=== PATIENT | female | born 1970 | race American Indian/Alaskan Native ===

== ENCOUNTER 2017-02-11 21:13 | Emergency (ER) | payer SELFPAY ==
[2017-02-11] MEDS ORDERED: ZESTRIL PO ONE (22:24)
[2017-02-11] MEDS ORDERED: ZESTRIL ONE (22:27)
[2017-02-12] MEDS ORDERED: CATAPRES PO ONE (00:47)
[2017-02-12] MEDS ORDERED: CATAPRES ONE (00:49)
[2017-02-12 02:02] VITALS: BP 193/95
--- NOTE | 2017-02-12 02:21 | Emergency Department Report ---
- General Chief complaint: Extremity Injury, Lower Stated complaint: PAIN ON RIGHT LEG Time Seen by Provider: 02/12/17 01:39 Source: patient, family Mode of arrival: Ambulatory Limitations: No Limitations - History of Present Illness Initial comments: 47-year-old female past medical history hypertension noncompliant with medicines presents with complaint of 3 days of abscess to her right lateral knee. Denies fever or chills. States her skin is very uncomfortable. Denies any chest pain shortness of breath dizziness headache nausea vomiting abdominal pain palpitations shortness of breath. States she is concerned that a bug may have bitten her leg. patient states that she takes lisinopril for her blood pressure but recently ran out of her prescription MD complaint: abscess/boil Onset/Timin -: days(s) Location: RLE Severity: moderate Severity scale (0 -10): 5 Quality: aching Consistency: constant Context: none - Related Data Previous Rx's Medication Instructions Recorded Last Taken Type Acetaminophen [Tylenol] 500 mg PO Q6HR PRN #20 tablet 02/12/17 Unknown Rx Lisinopril [Zestril TAB] 10 mg PO QDAY #30 tablet 02/12/17 Unknown Rx Sulfamethoxazole/Trimethoprim 1 each PO BID #14 tablet 02/12/17 Unknown Rx [Bactrim DS TAB] Allergies Allergy/AdvReac Type Severity Reaction Status Date / Time No Known Allergies Allergy Verified 02/11/17 22:23 Abscess Boil [facility] Chief Complaint: Extremity Injury, Lower Stated Complaint: PAIN ON RIGHT LEG Time Seen by Provider: 02/12/17 01:39 Home Medications: Previous Rx's Medication Instructions Recorded Last Taken Type Acetaminophen [Tylenol] 500 mg PO Q6HR PRN #20 tablet 02/12/17 Unknown Rx Lisinopril [Zestril TAB] 10 mg PO QDAY #30 tablet 02/12/17 Unknown Rx Sulfamethoxazole/Trimethoprim 1 each PO BID #14 tablet 02/12/17 Unknown Rx [Bactrim DS TAB] Allergies/Adverse Reactions: Allergies Allergy/AdvReac Type Severity Reaction Status Date / Time No Known Allergies Allergy Verified 02/11/17 22:23 ED Review of Systems ROS: Stated complaint: PAIN ON RIGHT LEG Other details as noted in HPI Constitutional: denies: chills, fever Eyes: denies: eye pain, eye discharge, vision change ENT: denies: ear pain, throat pain Respiratory: denies: cough, shortness of breath, wheezing Cardiovascular: denies: chest pain, palpitations Endocrine: no symptoms reported Gastrointestinal: denies: abdominal pain, nausea, diarrhea Genitourinary: denies: urgency, dysuria, discharge Musculoskeletal: denies: back pain, joint swelling, arthralgia Skin: as per HPI. denies: rash, lesions Neurological: denies: headache, weakness, paresthesias Psychiatric: denies: anxiety, depression Hematological/Lymphatic: denies: easy bleeding, easy bruising ED Past Medical Hx - Past Medical History Previous Medical History?: Yes Hx Hypertension: Yes - Surgical History Past Surgical History?: Yes Additional Surgical History: c section x 3 cysts removed - Social History Smoking Status: Never Smoker Substance Use Type: Prescribed - Medications Home Medications: Home Medications Medication Instructions Recorded Confirmed Last Taken Type Acetaminophen [Tylenol] 500 mg PO Q6HR PRN #20 tablet 02/12/17 Unknown Rx Lisinopril [Zestril TAB] 10 mg PO QDAY #30 tablet 02/12/17 Unknown Rx Sulfamethoxazole/Trimethoprim 1 each PO BID #14 tablet 02/12/17 Unknown Rx [Bactrim DS TAB] ED Physical Exam - General Limitations: No Limitations General appearance: alert, in no apparent distress - Head Head exam: Present: atraumatic, normocephalic - Eye Eye exam: Present: normal appearance, PERRL, EOMI - ENT ENT exam: Present: mucous membranes moist - Neck Neck exam: Present: normal inspection, full ROM - Respiratory Respiratory exam: Present: normal lung sounds bilaterally. Absent: respiratory distress - Cardiovascular Cardiovascular Exam: Present: regular rate, normal rhythm. Absent: systolic murmur, diastolic murmur, rubs, gallop - GI/Abdominal GI/Abdominal exam: Present: soft, normal bowel sounds - Extremities Exam Extremities exam: Present: normal inspection - Expanded Lower Extremity Exam Right Knee exam: Present: full ROM (E flexion and extension intact), tenderness ( tenderness below right patellar region at site of small 3 cm abscess), full knee extension Lower Leg exam: Present: normal inspection, full ROM Ankle exam: Present: normal inspection, full ROM Foot/Toe exam: Present: normal inspection, full ROM Neuro vascular tendon exam: Present: no vascular compromise (distal capillary refill dorsalis pedis and posterior tibial pulses intact) Gait: Positive: observed and normal 1 - 2-3 cm abscess here - Back Exam Back exam: Present: normal inspection - Neurological Exam Neurological exam: Present: alert, oriented X3, CN II-XII intact, normal gait - Psychiatric Psychiatric exam: Present: normal affect, normal mood - Skin Skin exam: Present: warm, dry, intact, normal color. Absent: rash ED Course Vital Signs 02/11/17 02/11/17 02/12/17 22:17 22:26 00:42 Temperature 98.6 F 98.7 F Pulse Rate 74 68 Respiratory 18 17 Rate Blood Pressure 208/97 208/97 Blood Pressure 199/100 [Right] O2 Sat by Pulse 97 99 Oximetry 02/12/17 02/12/17 00:48 02:01 Temperature 98 F Pulse Rate 81 Respiratory 16 Rate Blood Pressure 199/100 Blood Pressure 193/95 [Right] O2 Sat by Pulse 100 Oximetry - I & D Right Lateral Knee Type of Procedure: Simple Site: right Blade Size: 11 I & D Procedure: betadine prep, sterile dressing applied Progress: Area infiltrated with lidocaine 2% without epinephrine. Good local anesthesia achieved Small 1 cm incision made along Lani's lines. Small amount of drainage. Minimal bleeding. Procedure tolerated well. Covered with Band-Aid. - Laceration /Wound Repair Right Lower Lateral Knee Wound Location: lower extremity (below right knee/lateral upper tibial region) Wound Length (cm): 3 ED Medical Decision Making - Medical Decision Making A/P: Right lower extremity Abscess 1-locally incised and drained, procedure tolerated well, minimal purulent drainage 2-Bactrim twice a day 7 days 3-Tylenol when necessary 4-refill on hypertension medicines. Patient does not currently have chest pain palpitations shortness of breath dizziness headache and nausea vomiting abdominal pain or symptomatic hypertension. Patient advised to follow-up with primary care which I referred her to Critical care attestation.: If time is entered above; I have spent that time in minutes in the direct care of this critically ill patient, excluding procedure time. ED Disposition Clinical Impression: Abscess of right lower extremity, Asymptomatic hypertension Disposition: - TO HOME OR SELFCARE Is pt being admited?: No Does the pt Need Aspirin: No Condition: Stable Instructions: Hypertension (ED), Abscess Incision and Drainage (ED), Abscess ( ED) Prescriptions: Acetaminophen [Tylenol] 500 mg PO Q6HR PRN #20 tablet PRN Reason: Pain Lisinopril [Zestril TAB] 10 mg PO QDAY #30 tablet Sulfamethoxazole/Trimethoprim [Bactrim DS TAB] 1 each PO BID #14 tablet Referrals: [facility] [Provider Group] - 3-5 Days [facility] [Outside] - 3-5 Days IVETTE PADILLA MD [Staff Physician] - 3-5 Days Forms: Work/School Release Form(ED), Accompanied Note Time of Disposition: 02:36
== END 2017-02-12 02:50 | disposition home or self-care (01) ==
LOC: ED 21:13
DX: L02.415 Cutaneous abscess of right lower limb (principal); I10 Essential (primary) hypertension
CPT/HCPCS: 99282

== ENCOUNTER 2018-07-16 23:13 | Inpatient (IN) | payer MEDICAID, OTHER ==
[2018-07-16] MEDS ORDERED: ASPIRIN PO ONE (23:26)
[2018-07-16 23:58] LABS: Basophils % (Auto) 0.5 % (0.0-1.8); Eosinophils # (Auto) 0.2 K/mm3 (0.0-0.4); Eosinophils % (Auto) 1.9 % (0.0-4.3); Hemoglobin 11.7 gm/dl (10.1-14.3); Lymphocytes # (Auto) 3.2 K/mm3 (1.2-5.4); Lymphocytes % (Auto) 36.5 % (13.4-35.0); Mean Corpuscular HGB Conc 33 % (30-34); Mean Corpuscular Volume 84 fl (79-97); Monocytes # (Auto) 0.8 K/mm3 (0.0-0.8); Monocytes % (Auto) 9.6 % (0.0-7.3); Platelet Count 205 K/mm3 (140-440); Red Blood Count 4.27 M/mm3 (3.65-5.03)
[2018-07-17 00:09] LABS: BUN/Creatinine Ratio 10; Blood Urea Nitrogen 8 mg/dL (7-17); Calcium 8.5 mg/dL (8.4-10.2); Hemolysis Index 4
[2018-07-17] MEDS ORDERED: CATAPRES PO ONE (00:26)
[2018-07-17] MEDS ORDERED: CATAPRES ONE (00:27)
[2018-07-17] MEDS ORDERED: MORPHINE IV ONE (02:18)
[2018-07-17] MEDS ORDERED: ASPIRIN PO ONE (02:18)
[2018-07-17] MEDS ORDERED: ZOFRAN IV ONE (02:18)
[2018-07-17] MEDS ORDERED: NORMODYNE IV ONE (02:19)
[2018-07-17 03:25] LABS: INR 1.07 (0.87-1.13)
[2018-07-17 03:26] LABS: Partial Thromboplastin Time 30.5 Sec. (24.2-36.6)
--- NOTE | 2018-07-17 03:26 | XRay Report ---
FINAL REPORT EXAM: XR CHEST 1V AP HISTORY: chest pain COMPARISON: None available. FINDINGS: Frontal view(s) of the chest obtained. Heart borderline enlarged.. No gross consolidation or effusion . No pneumothorax. IMPRESSION: Heart borderline enlarged. Lungs are grossly clear.
--- NOTE | 2018-07-17 05:25 | Emergency Department Report ---
ED Chest Pain HPI - General Chief Complaint: Chest Pain Stated Complaint: CHEST PAIN Time Seen by Provider: 07/17/18 01:39 Source: patient Mode of arrival: Ambulatory Limitations: No Limitations - History of Present Illness Initial Comments: 48 yo female presents to ED with chest pain. States pain began 3 hours prior to arrival, is left-sided, sharp in nature, radiating into left arm. Her platelets nausea. Also reports pleuritic component. He has history of hypertension, is currently very hypertensive. Reports taking lisinopril at home. Patient denies ever having stress testing. No PCP currently. MD Complaint: chest pain -: This evening Onset: during rest Pain Location: left chest Pain Radiation: LUE, back Severity: moderate Severity scale (0 -10): 8 Quality: sharp Consistency: intermittent Improves With: leaning foward re: nausea. denies: dyspnea Other Symptoms: denies: cough, fever, leg swelling - Related Data Previous Rx's Medication Instructions Recorded Last Taken Type Acetaminophen [Tylenol] 500 mg PO Q6HR PRN #20 tablet 02/12/17 Unknown Rx Lisinopril [Zestril TAB] 10 mg PO QDAY #30 tablet 02/12/17 Unknown Rx Sulfamethoxazole/Trimethoprim 1 each PO BID #14 tablet 02/12/17 Unknown Rx [Bactrim DS TAB] Allergies Allergy/AdvReac Type Severity Reaction Status Date / Time No Known Allergies Allergy Verified 02/11/17 22:23 Heart Score - HEART Score History: Moderately suspicious EKG: Non-specific Age: 45-65 Risk factors: 1-2 risk factors Troponin: < normal limit HEART Score: 4 ED Review of Systems ROS: Stated complaint: CHEST PAIN Other details as noted in HPI Comment: All other systems reviewed and negative Constitutional: denies: chills, fever Respiratory: denies: shortness of breath Cardiovascular: chest pain Gastrointestinal: nausea ED Past Medical Hx - Past Medical History Previous Medical History?: Yes Hx Hypertension: Yes - Surgical History Past Surgical History?: Yes Additional Surgical History: c section x 3 cysts removed - Social History Smoking Status: Never Smoker - Medications Home Medications: Home Medications Medication Instructions Recorded Confirmed Last Taken Type Acetaminophen [Tylenol] 500 mg PO Q6HR PRN #20 tablet 02/12/17 Unknown Rx Lisinopril [Zestril TAB] 10 mg PO QDAY #30 tablet 02/12/17 Unknown Rx Sulfamethoxazole/Trimethoprim 1 each PO BID #14 tablet 02/12/17 Unknown Rx [Bactrim DS TAB] ED Physical Exam - General Limitations: No Limitations General appearance: alert, in no apparent distress - Head Head exam: Present: atraumatic, normocephalic - Eye Eye exam: Present: normal appearance - ENT ENT exam: Present: mucous membranes moist - Neck Neck exam: Present: normal inspection - Respiratory Respiratory exam: Present: normal lung sounds bilaterally. Absent: respiratory distress - Cardiovascular Cardiovascular Exam: Present: regular rate, normal rhythm - GI/Abdominal GI/Abdominal exam: Present: soft. Absent: distended, tenderness - Extremities Exam Extremities exam: Absent: pedal edema, calf tenderness - Neurological Exam Neurological exam: Present: alert, oriented X3 - Psychiatric Psychiatric exam: Present: normal affect, normal mood - Skin Skin exam: Present: warm, dry, intact, normal color. Absent: rash ED Course Vital Signs 07/16/18 07/17/18 07/17/18 23:18 00:27 01:45 Temperature 98.5 F Pulse Rate 82 77 Respiratory 20 14 Rate Blood Pressure 237/113 222/115 O2 Sat by Pulse 99 99 Oximetry 07/17/18 07/17/18 07/17/18 02:22 02:30 02:46 Temperature Pulse Rate 66 72 70 Respiratory 14 17 14 Rate Blood Pressure 193/91 199/78 O2 Sat by Pulse 99 Oximetry 07/17/18 02:57 Temperature Pulse Rate 72 Respiratory Rate Blood Pressure 199/78 O2 Sat by Pulse Oximetry ED Medical Decision Making - Lab Data Result diagrams: 07/16/18 23:29 07/16/18 23:29 - EKG Data -: EKG Interpreted by Wy EKG shows normal: sinus rhythm Rate: normal - EKG Data Interpretation: LVH, other (lateral T wave inversions) - Radiology Data Radiology results: report reviewed, image reviewed - Medical Decision Making 48-year-old female with chest pain. Initially extremely hypertensive. On a daily labetalol, systolic BP currently in the 140s. She is currently chest pain-free. Troponin is negative, EKG shows lateral T-wave inversions. D-dimer also negative, chest x-ray normal. Will admit to hospitalist for further evaluation. - Differential Diagnosis ACS, PE, pneumonia, pulm edema Critical Care Time: Yes Critical care time in (mins) excluding proc time.: 30 Critical care attestation.: If time is entered above; I have spent that time in minutes in the direct care of this critically ill patient, excluding procedure time. Critical Care Time: 30 minutes ED Disposition Clinical Impression: Chest pain, Hypertensive urgency Disposition: OP ADMIT IP TO THIS HOSP Is pt being admited?: Yes Condition: Stable Instructions: Chest Pain (ED) Referrals: CECIL LARSEN [Primary Care Provider] - 3-5 Days Time of Disposition: 05:28
[2018-07-17] MEDS ORDERED: APRESOLINE IV PRN ×2 (06:26→06:31)
[2018-07-17] MEDS ORDERED: APRESOLINE ONE (06:33)
[2018-07-17] MEDS ORDERED: DILAUDID IV PRN (09:37)
[2018-07-17] MEDS ORDERED: PERCOCET 5/325 PO PRN (09:37)
[2018-07-17] MEDS ORDERED: SODIUM CHLORIDE FLUSH SYRINGE 10 ML IV PRN (09:37)
[2018-07-17] MEDS ORDERED: TYLENOL PO PRN ×2 (09:37→09:40)
[2018-07-17] MEDS ORDERED: ZOFRAN IV PRN (09:37)
--- NOTE | 2018-07-17 09:37 | History and Physical Report ---
History of Present Illness Date of examination: 07/17/18 Medications and Allergies Allergies Allergy/AdvReac Type Severity Reaction Status Date / Time No Known Allergies Allergy Verified 02/11/17 22:23 Home Medications Medication Instructions Recorded Confirmed Last Taken Type Acetaminophen [Tylenol] 500 mg PO Q6HR PRN #20 tablet 02/12/17 Unknown Rx Lisinopril [Zestril TAB] 10 mg PO QDAY #30 tablet 02/12/17 Unknown Rx Sulfamethoxazole/Trimethoprim 1 each PO BID #14 tablet 02/12/17 Unknown Rx [Bactrim DS TAB] Active Meds: Active Medications Hydralazine HCl (Apresoline) 5 mg IV Q6H PRN PRN Reason: Hypertension Exam - Constitutional Vitals: Temp Pulse Resp BP Pulse Ox 98.5 F 65 19 155/83 100 07/16/18 23:18 07/17/18 06:54 07/17/18 06:54 07/17/18 06:54 07/17/18 06:54 Results - Labs CBC & Chem 7: 07/16/18 23:29 07/16/18 23:29 Labs: Laboratory Last Values WBC 8.7 K/mm3 (4.5-11.0) 07/16/18 23:29 RBC 4.27 M/mm3 (3.65-5.03) 07/16/18 23:29 Hgb 11.7 gm/dl (10.1-14.3) 07/16/18 23:29 Hct 36.0 % (30.3-42.9) 07/16/18 23:29 MCV 84 fl (79-97) 07/16/18 23:29 MCH 27 pg (28-32) L 07/16/18 23:29 MCHC 33 % (30-34) 07/16/18 23:29 RDW 14.0 % (13.2-15.2) 07/16/18 23:29 Plt Count 205 K/mm3 (140-440) 07/16/18 23:29 Lymph % (Auto) 36.5 % (13.4-35.0) H 07/16/18 23:29 [place] % (Auto) 9.6 % (0.0-7.3) H 07/16/18 23:29 Eos % (Auto) 1.9 % (0.0-4.3) 07/16/18 23:29 Baso % (Auto) 0.5 % (0.0-1.8) 07/16/18 23:29 Lymph # 3.2 K/mm3 (1.2-5.4) 07/16/18 23:29 [place] # 0.8 K/mm3 (0.0-0.8) 07/16/18 23:29 Eos # 0.2 K/mm3 (0.0-0.4) 07/16/18 23:29 Baso # 0.0 K/mm3 (0.0-0.1) 07/16/18 23:29 Seg Neutrophils % 51.5 % (40.0-70.0) 07/16/18 23: Seg Neutrophils # 4.5 K/mm3 (1.8-7.7) 07/16/18 23:29 PT 14.3 Sec. (12.2-14.9) 07/17/18 02:53 INR 1.07 (0.87-1.13) 07/17/18 02:53 APTT 30.5 Sec. (24.2-36.6) 07/17/18 02:53 D-Dimer < 135 ng/mlDDU (0-234) 07/17/18 02:53 Sodium 138 mmol/L (137-145) 07/16/18 23:29 Potassium 3.9 mmol/L (3.6-5.0) 07/16/18 23:29 Chloride 98.9 mmol/L (98-107) 07/16/18 23:29 Carbon Dioxide 28 mmol/L (22-30) 07/16/18 23:29 Anion Gap 15 mmol/L 07/16/18 23:29 BUN 8 mg/dL (7-17) 07/16/18 23:29 Creatinine 0.8 mg/dL (0.7-1.2) 07/16/18 23:29 Estimated GFR > 60 ml/min 07/16/18 23:29 BUN/Creatinine Ratio 10 % 07/16/18 23:29 Glucose 280 mg/dL (65-100) H 07/16/18 23:29 Calcium 8.5 mg/dL (8.4-10.2) 07/16/18 23:29 Troponin T < 0.010 ng/mL (0.00-0.029) 07/17/18 06:10 HCG, Qual Negative (Negative) 07/16/18 23:29
[2018-07-17] MEDS ORDERED: ZESTRIL PO SCH (10:00)
[2018-07-17] MEDS ORDERED: LEXISCAN IV ONE (12:30)
[2018-07-17 14:39] VITALS: BP 171/78
[2018-07-17] MEDS ORDERED: D5/0.45NS 1,000 ML IV SCH (15:00)
[2018-07-17] MEDS ORDERED: HumaLOG SUB-Q ONE (15:00)
--- NOTE | 2018-07-17 15:28 | Event Note ---
Date: 07/17/18 See history and physical in the reports Chest pain rule out [place] New-onset diabetes
--- NOTE | 2018-07-17 15:33 | Treadmill Report ---
NUCLEAR PERFUSION SCAN REFERRING PHYSICIAN: Hospitalist service. PROTOCOL: The patient was brought to the stress lab in a postabsorptive state, given 10 mCi of technetium 99m at rest. The patient underwent rest imaging. The patient will have a Lexiscan stress test. At peak stress, the patient was given 26 mCi of technetium 99m. Shortly thereafter, the patient underwent stress imaging. Raw imaging reveals mild GI artifact, no significant motion artifact. SPECT imaging examined carefully in the horizontal long axis, vertical long axis, short axis views. There is normal homogenous uptake of radioisotope in all reported segments. No evidence of significant fixed or reversible perfusion defects suggestive of prior infarction or ischemia. Gated wall motion reveals normal systolic thickening, calculated ejection fraction of 58%, no TID. CONCLUSIONS: 1. Normal myocardial perfusion scan without evidence of significant degree of ischemia or prior infarction. 2. Normal left ventricular systolic performance without evidence of transient ischemic dilatation or stress-induced segmental wall motion abnormalities. 3. Lexiscan portion of stress test is reported separately. JOB# [id number] ABDIRIZAK/AMOR
--- NOTE | 2018-07-17 15:36 | Discharge Summary ---
Providers - Providers Date of Admission: 07/17/18 06:31 Date of discharge: 07/17/18 Attending physician: STEVE MCARTHUR Primary care physician: CECIL LARSEN Hospitalization Condition: Stable Procedures: MPI negative Hospital course: Patient was admitted for chest pain rule out [place] and uncontrolled hypertension. The patient's blood pressure medications were adjusted were also negative milligrams a 160 mg was added. Patient is assessed as well in April was admitted to the hospital but just stress test was negative. EKG was normal. Th e patient being discharged on increased antihypertensives in the form of 160 BY MOUTH DAILY CONTINUING TO CONTINUE ASPIRIN. DISCHARGE DIAGNOSES HYPERTENSIVE EMERGENCY [place] DIABETES AND CHEST PAIN RULE OUT [place] PROTOCOL. Disposition: TO HOME OR SELFCARE Core Measure Documentation - Palliative Care Palliative Care/ Comfort Measures: Not Applicable - Core Measures Any of the following diagnoses?: none Exam - Constitutional Vitals: Temp Pulse Resp BP Pulse Ox 98.5 F 65 19 171/78 98 07/16/18 23:18 07/17/18 14:38 07/17/18 14:21 07/17/18 14:38 07/17/18 14:21 General appearance: Present: no acute distress, well-nourished - EENT Eyes: Present: PERRL ENT: hearing intact, clear oral mucosa - Neck Neck: Present: supple, normal ROM - Respiratory Respiratory effort: normal Respiratory: bilateral: CTA - Cardiovascular Heart Sounds: Present: S1 & S2. Absent: rub, click - Extremities Extremities: pulses symmetrical, No edema Peripheral Pulses: within normal limits - Abdominal General gastrointestinal: Present: soft, non-tender, non-distended, normal bowel sounds Female genitourinary: Present: normal - Integumentary Integumentary: Present: clear, warm, dry - Musculoskeletal Musculoskeletal: gait normal, strength equal bilaterally - Psychiatric Psychiatric: appropriate mood/affect, intact judgment & insight - Neurologic Neurologic: CNII-XII intact, moves all extremities Plan Diet: diabetic Follow up with: CECIL LARSEN [Primary Care Provider] - 3-5 Days
--- NOTE | 2018-07-17 16:00 | History and Physical Report ---
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 No vomiting. No diaphoresis, no shortness of breath. The patient has history of hypertension. The patient is taking her medications. No radiation of the chest pain. Chest pain is precordial. Also, pain is about 5-6 on a scale of 1-10. No exacerbating or relieving factors. No trauma. No contusion injury. PAST MEDICAL HISTORY: Significant for hypertension and newly onset diabetes mellitus diagnosed today. PAST SURGICAL HISTORY: x 3 and cyst removed. SOCIAL HISTORY: Does not smoke. FAMILY HISTORY: Hypertension. CURRENT MEDICATIONS: Lisinopril 10 mg once a day. REVIEW OF SYSTEMS: Significant for left-sided chest pain. Otherwise, review of systems negative. PHYSICAL EXAMINATION: GENERAL: Middle-aged female, cooperative during examination. VITAL SIGNS: Blood pressure is 187/100 that has come down to 171/78, temperature is 98, pulse is 70 and respirations are 16. HEENT: Unremarkable. Pupils are equal and reactive. NECK: Supple, no lymphadenopathy, no thyromegaly. LUNGS: Clear to auscultation and percussion. Good air entry. CARDIOVASCULAR: S1, S2 heard. No gallop, no murmur, no rub. Apical impulse in left fifth intercostal space and midclavicular line. ABDOMEN: Soft and benign. No hepatosplenomegaly. No guarding, no rigidity. Hernial orifices are normal. EXTREMITIES: Good pedal pulses. No pedal edema. CENTRAL NERVOUS SYSTEM: Alert and oriented x 4, nonfocal exam. LABORATORY DATA: Chest x-ray is normal. No acute findings. Heart is borderline enlarged. The EKG shows normal sinus rhythm, heart rate of 59 per minute. Borderline sinus bradycardia. LVH present. T-wave inversions in V5 and V6. Troponins are negative. White count is 8700, H and H is 11.7 and 36.0. Sodium is 138, potassium is 3.9, chloride is 99, bicarbonate is 28, BUN and creatinine of 8 and 0.8, glucose is 280. A1c is 8.1. Troponin is less than 0.010. Chest x-ray, no acute findings. ASSESSMENT AND PLAN: 1. Chest pain, rule out myocardial infarction, chest pain protocol. 2. New onset diabetes. The patient initiated on metformin and glimepiride 2 mg once a day. The patient informed about diabetes and educated her about diabetes. 3. Hypertensive emergency. The patient's blood pressure medications adjusted. Added valsartan 80 mg q. 12. 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 JOB# [id number] VSM/NTS
[2018-07-17] MEDS ORDERED: SODIUM CHLORIDE FLUSH SYRINGE 10 ML IV SCH (22:00)
[2018-07-18] MEDS ORDERED: ASPIRIN 81 MG PO SCH (10:00)
[2018-07-18] MEDS ORDERED: HALFPRIN EC PO SCH (10:00)
== END 2018-07-17 17:17 | disposition home or self-care (01) | DRG 305 ==
LOC: ED 23:13 → 4A 07-17 06:31
PROVIDERS: ADMIT Internal Medicine; ATTEND Internal Medicine
DX: I16.1 Hypertensive emergency (principal); R07.9 Chest pain, unspecified; I16.0 Hypertensive urgency; I10 Essential (primary) hypertension; E11.9 Type 2 diabetes mellitus without complications
CPT/HCPCS: 36415; 71045; 78452; 80048; 83036; 84484; 84703; 85025; 85379; 85610; 85730; 93005; 93010; 93017; G0378; A9502; J0360; J1170; J2270; J2405; J2785

== ENCOUNTER 2018-07-31 10:33 | Emergency (ER) | payer OTHER ==
[2018-07-31 12:01] LABS: Bilirubin,Urine NEG (Negative); Blood,Urine LG (Negative); Color,Urine Red (Yellow); Urobilinogen,Urine < 2.0 mg/dL (<2.0)
[2018-07-31 12:02] LABS: RBC,Urine > 182.0 /HPF (0.0-6.0); WBC,Urine > 182.0 /HPF (0.0-6.0)
[2018-07-31 12:03] LABS: HCG Qualitative,Urine Negative (Negative)
[2018-07-31] MEDS ORDERED: ULTRAM PO ONE (13:45)
--- NOTE | 2018-07-31 15:55 | Emergency Department Report ---
ED Female HPI - General Chief complaint: Vaginal Bleeding Stated complaint: ABD PAIN/VAGINAL BLEEDING Time Seen by Provider: 07/31/18 13:27 Source: patient Mode of arrival: Ambulatory Limitations: No Limitations - History of Present Illness Initial comments: Patient is a 48-year-old female presents to the complaining of heavy vaginal bleeding that started yesterday. Patient states that her menstrual cycle usually last about 2-3 days. States that she had her normal cycle in June and it was not as heavy. Patient states that yesterday since bleeding so these are pretty heavy with some pelvic cramping. She denies dysuria, hematuria, nausea vomiting MD Complaint: vaginal bleeding - Related Data Previous Rx's Medication Instructions Recorded Last Taken Type Aspirin [Lo-Dose Aspirin EC] 81 mg PO DAILY #100 tablet. 07/17/18 Unknown Rx Glimepiride [Amaryl] 1 mg PO QAM #90 tablet 07/17/18 Unknown Rx Lisinopril [Zestril TAB] 20 mg PO QDAY #30 tablet 07/17/18 Unknown Rx amLODIPine [Norvasc] 10 mg PO DAILY #30 tab 07/17/18 Unknown Rx metFORMIN [Glucophage] 500 mg PO BID #60 tablet 07/17/18 Unknown Rx Ibuprofen [Motrin] 800 mg PO Q8HR #30 tablet 07/31/18 Unknown Rx traMADol [Ultram 50 MG tab] 50 mg PO Q6H #24 tablet 07/31/18 Unknown Rx Allergies Allergy/AdvReac Type Severity Reaction Status Date / Time No Known Allergies Allergy Verified 02/11/17 22:23 ED Review of Systems ROS: Stated complaint: ABD PAIN/VAGINAL BLEEDING Other details as noted in HPI Comment: All other systems reviewed and negative ED Past Medical Hx - Past Medical History Hx Hypertension: Yes Hx Diabetes: Yes - Surgical History Additional Surgical History: c section x 3 cysts removed - Social History Smoking Status: Never Smoker Substance Use Type: None - Medications Home Medications: Home Medications Medication Instructions Recorded Confirmed Last Taken Type Aspirin [Lo-Dose Aspirin EC] 81 mg PO DAILY #100 tablet. 07/17/18 Unknown Rx Glimepiride [Amaryl] 1 mg PO QAM #90 tablet 07/17/18 Unknown Rx Lisinopril [Zestril TAB] 20 mg PO QDAY #30 tablet 07/17/18 Unknown Rx amLODIPine [Norvasc] 10 mg PO DAILY #30 tab 07/17/18 Unknown Rx metFORMIN [Glucophage] 500 mg PO BID #60 tablet 07/17/18 Unknown Rx Ibuprofen [Motrin] 800 mg PO Q8HR #30 tablet 07/31/18 Unknown Rx traMADol [Ultram 50 MG tab] 50 mg PO Q6H #24 tablet 07/31/18 Unknown Rx ED Physical Exam - General Limitations: No Limitations General appearance: alert, in no apparent distress - Head Head exam: Present: atraumatic, normocephalic - Eye Eye exam: Present: normal appearance - ENT ENT exam: Present: mucous membranes moist - Neck Neck exam: Present: normal inspection - Respiratory Respiratory exam: Present: normal lung sounds bilaterally. Absent: respiratory distress - Cardiovascular Cardiovascular Exam: Present: regular rate, normal rhythm. Absent: systolic murmur, diastolic murmur, rubs, gallop - GI/Abdominal GI/Abdominal exam: Present: soft, normal bowel sounds. Absent: distended, tenderness, guarding, mass - External exam: Present: normal external exam Speculum exam: Present: vaginal bleeding. Absent: erythema, vaginal discharge, tissue Bi-manual exam: Present: normal bi-manual exam. Absent: cervical motion tendernes, adnexal tenderness - Extremities Exam Extremities exam: Present: normal inspection, full ROM - Back Exam Back exam: Present: normal inspection - Neurological Exam Neurological exam: Present: alert, oriented X3 - Psychiatric Psychiatric exam: Present: normal affect, normal mood - Skin Skin exam: Present: warm, dry, intact, normal color. Absent: rash ED Course Vital Signs 07/31/18 07/31/18 07/31/18 11:01 13:58 16:20 Temperature 97.7 F 98.5 F Pulse Rate 74 73 Respiratory 18 16 16 Rate Blood Pressure 176/92 168/81 O2 Sat by Pulse 100 98 Oximetry 07/31/18 16:50 Temperature Pulse Rate Respiratory 16 Rate Blood Pressure O2 Sat by Pulse Oximetry ED Medical Decision Making - Medical Decision Making 48-year-old female presents with menorrhagia. Patient has good pallor. Discuss follow-up by climatology teacher. Vital signs are normal she is in no acute distress. Discussed with the patient elevated bleeding gets was to return to ED immediately otherwise follow up with climatology teacher. Pelvic pain controlled in ED with Toradol and tramadol Patient is able to speak in clear sentences, understanding instructions. Critical care attestation.: If time is entered above; I have spent that time in minutes in the direct care of this critically ill patient, excluding procedure time. ED Disposition Clinical Impression: Menorrhagia Disposition: - TO HOME OR SELFCARE Is pt being admited?: No Does the pt Need Aspirin: No Condition: Stable Instructions: Menorrhagia (ED) Additional Instructions: Make sure to follow up with the primary care physician as discussed. Take all your medications as you've been prescribed. Follow-up with a climatology teacher in 3-5 days. Bleeding should get sugar presser next 2-3 days. If not follow-up with climatology teacher If you have any worsening symptoms or develop new symptoms please return to ED immediately. Prescriptions: Ibuprofen [Motrin] 800 mg PO Q8HR #30 tablet traMADol [Ultram 50 MG tab] 50 mg PO Q6H #24 tablet Referrals: CECIL LARSEN MD [Primary Care Provider] - 3-5 Days SOPHIE JACK MD [Referring] - 3-5 Days [facility] [Provider Group] - 3-5 Days Forms: Work/School Release Form(ED) Time of Disposition: 17:20
[2018-07-31 16:22] VITALS: BP 168/81
[2018-07-31] MEDS ORDERED: TORADOL IM ONE (16:26)
== END 2018-07-31 17:33 | disposition home or self-care (01) ==
LOC: ED 10:33
DX: N95.0 Postmenopausal bleeding (principal); I10 Essential (primary) hypertension; E11.9 Type 2 diabetes mellitus without complications
CPT/HCPCS: 81001; 81025; 96372; 99284; J1885